=== PATIENT | male | born 1985 | race African-American/Black ===

== ENCOUNTER 2017-09-24 07:20 | Emergency (ER) | payer SELFPAY ==
[~2017-09-24] VITALS: Ht 180.3 cm; Wt 86.2 kg
[2017-09-24 07:33] VITALS: BP 112/76
== END 2017-09-24 08:52 | disposition left against medical advice (07) ==
LOC: ER 07:20
DX: R07.89 Other chest pain (principal); Z53.29 Procedure and treatment not carried out because of patient's decision for other reasons
CPT/HCPCS: 93005